=== PATIENT | male | born 1980 | race Caucasian/White ===

== ENCOUNTER 2018-05-02 15:50 | Inpatient (IN) | payer OTHER ==
[2018-05-02] MEDS ORDERED: NACL 0.9% 3 ML SYG IV (19:00)
[2018-05-02 19:45] LABS: WHITE BLOOD COUNT 9.9 10^3/ul (4.8-10.8)
[2018-05-02 19:45] LABS: ADD MAN DIFF? NO; BASOPHILS % 0.3 % (0.0-2.0); EOSINOPHILS # 0.1 10^3/ul (0.0-0.5); EOSINOPHILS % 0.6 % (0.0-7.0); HEMOGLOBIN 13.7 g/dl (14.0-18.0); LYMPHOCYTES # 1.2 10^3/ul (0.8-2.9); LYMPHOCYTES % 11.7 % (15.0-51.0); MEAN CORPUSCULAR HEMOGLOBIN 30.9 pg (29.0-33.0); MEAN CORPUSCULAR HGB CONC 34.3 g/dl (32.0-37.0); MEAN CORPUSCULAR VOLUME 90.1 fl (82.0-101.0); MEAN PLATELET VOLUME 10.6 fl (7.4-10.4); MONOCYTE # 0.7 10^3/ul (0.3-0.9); MONOCYTES % 6.5 % (0.0-11.0); NEUTROPHILS % 80.7 % (39.0-77.0); PLATELET COUNT 220 10^3/UL (140-415); RED BLOOD COUNT 4.44 10^6/ul (4.70-6.10); RED CELL DISTRIBUTION WIDTH 14.8 % (11.5-14.5)
[2018-05-02] MEDS: HYDROCODONE/APAP (5/325) TAB PO (19:58)
[2018-05-02 20:02] LABS: ALANINE AMINOTRANSFERASE 15 IU/L (13-69); ALBUMIN 3.9 g/dl (3.3-4.9); ALBUMIN/GLOBULIN RATIO 1.11; ALKALINE PHOSPHATASE 51 IU/L (42-121); ANION GAP 11 (5-13); ASPARTATE AMINO TRANSFERASE 14 IU/L (15-46); BILIRUBIN,INDIRECT 2.2 mg/dl (0-1.1); BILIRUBIN,TOTAL 2.2 mg/dl (0.2-1.3); BLOOD UREA NITROGEN 11 mg/dl (7-20); CALCIUM 8.9 mg/dl (8.4-10.2); CARBON DIOXIDE 25 mmol/L (21-31); CHLORIDE 104 mmol/L (97-110); CREATININE 1.19 mg/dl (0.61-1.24); Estimated GFR > 60 mL/min (>60); GLUCOSE 117 mg/dl (70-220); POTASSIUM 3.6 mmol/L (3.5-5.1); SODIUM 140 mmol/L (135-144); TOTAL PROTEIN 7.4 g/dl (6.1-8.1)
[2018-05-02] MEDS: AZITHROMYCIN 250 MG TAB PO (22:51)
[2018-05-02] MEDS: CEFTRIAXONE 1 GM/50 ML (PMX) 50 ML IVPB (22:51)
[2018-05-02] MEDS ORDERED: GLUCOSE GEL 15 GRAM TUBE BUCCAL (23:00)
[2018-05-02] MEDS ORDERED: GLUCOSE GEL 15 GRAM TUBE PO ×2 (23:00)
[2018-05-02] MEDS ORDERED: DEXTROSE 50% 50 ML SYRINGE IV ×2 (23:00)
[2018-05-02] MEDS ORDERED: GLUCAGON 1 MG INJ IM (23:00)
[2018-05-02] MEDS: NEBIVOLOL 5 MG TAB PO (23:59)
[2018-05-03] MEDS: ACCU-CHEK XX (02:00)
[2018-05-03 07:29] LABS: HEMOGLOBIN A1C 6.1 % (0-5.9)
[2018-05-03] MEDS: INSULIN ASPART [NOVOLOG] 3 ML PEN SC ×4 (08:00→20:35)
[2018-05-03] MEDS: ASPIRIN (EC) 81 MG TAB PO (08:49)
[2018-05-03] MEDS: AZITHROMYCIN 250 MG TAB PO (08:55)
[2018-05-03] MEDS: INFLUENZA VIRUS VACCINE 0.5 ML (DISPENSING) IM* (08:57)
[2018-05-03] MEDS ORDERED: NEBIVOLOL 5 MG TAB PO (09:00)
[2018-05-03] MEDS ORDERED: [UNRECOGNIZED DRUG - OTHER] PO (09:00)
[2018-05-03 09:53] LABS: ADD MAN DIFF? NO
[2018-05-03 09:55] LABS: BASOPHILS % 0.1 % (0.0-2.0); EOSINOPHILS # 0.1 10^3/ul (0.0-0.5); EOSINOPHILS % 1.3 % (0.0-7.0); HEMATOCRIT 39.5 % (42.0-52.0); HEMOGLOBIN 13.2 g/dl (14.0-18.0); LYMPHOCYTES # 0.8 10^3/ul (0.8-2.9); LYMPHOCYTES % 11.7 % (15.0-51.0); MEAN CORPUSCULAR HEMOGLOBIN 30.4 pg (29.0-33.0); MEAN CORPUSCULAR HGB CONC 33.4 g/dl (32.0-37.0); MEAN PLATELET VOLUME 11.3 fl (7.4-10.4); MONOCYTE # 0.5 10^3/ul (0.3-0.9); MONOCYTES % 6.9 % (0.0-11.0); NEUTROPHIL # 5.7 10^3/ul (1.6-7.5); NEUTROPHILS % 79.6 % (39.0-77.0); PLATELET COUNT 197 10^3/UL (140-415); RED BLOOD COUNT 4.34 10^6/ul (4.70-6.10); RED CELL DISTRIBUTION WIDTH 14.9 % (11.5-14.5)
[2018-05-03 09:55] LABS: WHITE BLOOD COUNT 7.2 10^3/ul (4.8-10.8)
[2018-05-03] MEDS: NEBIVOLOL 5 MG TAB PO (09:58)
[2018-05-03 10:19] LABS: ANION GAP 9 (5-13); BLOOD UREA NITROGEN 15 mg/dl (7-20); CALCIUM 8.6 mg/dl (8.4-10.2); CARBON DIOXIDE 26 mmol/L (21-31); CHLORIDE 103 mmol/L (97-110); CREATININE 1.18 mg/dl (0.61-1.24); Estimated GFR > 60 mL/min (>60); GLUCOSE 128 mg/dl (70-220); POTASSIUM 4.5 mmol/L (3.5-5.1); SODIUM 138 mmol/L (135-144)
[2018-05-03 11:03] LABS: HIV 1&2 ANTIBODY NEGATIVE (NEGATIVE)
[2018-05-03] MEDS: ALBUTEROL/IPRATROPIUM (NEB) 3 ML AMP HHN ×2 (14:32→20:17)
[2018-05-03] MEDS: HYDROCODONE/APAP (5/325) TAB PO (18:35)
[2018-05-03] MEDS ORDERED: ALBUTEROL/IPRATROPIUM (NEB) 3 ML AMP HHN (20:00)
[2018-05-03] MEDS: predniSONE 20 MG TAB PO (20:37)
[2018-05-03] MEDS: CEFTRIAXONE 1 GM/50 ML (PMX) 50 ML IVPB (20:39)
[2018-05-04] MEDS: [UNRECOGNIZED DRUG - REMARK] XX (00:19)
[2018-05-04] MEDS: ALBUTEROL/IPRATROPIUM (NEB) 3 ML AMP HHN ×4 (01:38→20:22)
[2018-05-04] MEDS: predniSONE 20 MG TAB PO (08:39)
[2018-05-04] MEDS: INSULIN ASPART [NOVOLOG] 3 ML PEN SC ×4 (08:39→21:06)
[2018-05-04] MEDS: ASPIRIN (EC) 81 MG TAB PO (08:39)
[2018-05-04] MEDS: AZITHROMYCIN 250 MG TAB PO (08:39)
[2018-05-04] MEDS: NEBIVOLOL 5 MG TAB PO (08:40)
[2018-05-04] MEDS: CEFTRIAXONE 1 GM/50 ML (PMX) 50 ML IVPB (21:04)
[2018-05-05] MEDS: ALBUTEROL/IPRATROPIUM (NEB) 3 ML AMP HHN ×3 (02:17→15:31)
[2018-05-05 06:20] LABS: ADD MAN DIFF? NO
[2018-05-05 06:25] LABS: BASOPHILS % 0.3 % (0.0-2.0); EOSINOPHILS # 0.1 10^3/ul (0.0-0.5); EOSINOPHILS % 1.4 % (0.0-7.0); HEMATOCRIT 36.4 % (42.0-52.0); HEMOGLOBIN 11.9 g/dl (14.0-18.0); LYMPHOCYTES # 1.8 10^3/ul (0.8-2.9); MEAN CORPUSCULAR HEMOGLOBIN 30.2 pg (29.0-33.0); MEAN CORPUSCULAR HGB CONC 32.7 g/dl (32.0-37.0); MEAN CORPUSCULAR VOLUME 92.4 fl (82.0-101.0); MEAN PLATELET VOLUME 10.6 fl (7.4-10.4); MONOCYTE # 0.4 10^3/ul (0.3-0.9); MONOCYTES % 5.9 % (0.0-11.0); NEUTROPHIL # 4.6 10^3/ul (1.6-7.5); PLATELET COUNT 264 10^3/UL (140-415); RED BLOOD COUNT 3.94 10^6/ul (4.70-6.10); RED CELL DISTRIBUTION WIDTH 15.1 % (11.5-14.5)
[2018-05-05 06:55] LABS: B-TYPE NATRIURETIC PEPTIDE 2240 PG/ML (0-125)
[2018-05-05 07:16] LABS: HEPATITIS B SURFACE ANTIGEN NEGATIVE (NEGATIVE)
[2018-05-05 07:33] LABS: HEPATITIS B SURFACE ANTIBODY POSITIVE (NEGATIVE)
[2018-05-05 07:34] LABS: HEPATITIS B CORE ANTIBODY NEGATIVE (NEGATIVE); HEPATITIS C VIRAL ANTIBODY NEGATIVE (NEGATIVE)
[2018-05-05] MEDS: INSULIN ASPART [NOVOLOG] 3 ML PEN SC ×2 (08:00→12:00)
[2018-05-05] MEDS: [UNRECOGNIZED DRUG - REMARK] XX (09:00)
[2018-05-05] MEDS: ASPIRIN (EC) 81 MG TAB PO (09:34)
[2018-05-05] MEDS: AZITHROMYCIN 250 MG TAB PO (09:34)
[2018-05-05] MEDS: predniSONE 20 MG TAB PO (09:35)
[2018-05-05] MEDS: AMOXICILLIN/CLAV 875 MG TAB PO (09:35)
[2018-05-05] MEDS: NEBIVOLOL 5 MG TAB PO (09:36)
[2018-05-07 14:26] LABS: PROCALCITONIN 0.17 ng/mL (<0.10)
== END 2018-05-05 16:00 | disposition home or self-care (01) | DRG 195 ==
LOC: PP2 15:50
PROVIDERS: Family Medicine
DX: J18.9 Pneumonia, unspecified organism (principal); I10 Essential (primary) hypertension; R79.89 Other specified abnormal findings of blood chemistry; E11.9 Type 2 diabetes mellitus without complications
CPT/HCPCS: 71046; 80048; 80053; 82962; 83036; 83880; 84145; 85025; 85651; 86635; 86703; 86704; 86706; 86803; 87081; 87275; 87276; 87279; 87280; 87340; 90686; 94640; 94664